=== PATIENT | female | born 2000 | race Hispanic/Latino ===

== ENCOUNTER 2019-05-05 02:28 | Emergency (ER) | payer OTHER ==
[~2019-05-05] VITALS: Ht 162.6 cm; Wt 72.6 kg
--- OUTSIDE RECORDS SUMMARY | 2019-05-05 02:31 | XMS REPORT ---
Author Author [facility] Address Unknown Phone Unavailable Care Team Providers Care Selector Packer Name Role Phone Unavailable Unavailable Payers Payer Name Policy Type Policy Number Effective Date Expiration Date Problems This patient has no known problems. Allergies, Adverse Reactions, Alerts Allergy Name Allergy Type Status Severity Reaction(s) Onset Date Inactive Date Treating Clinician Comments No Known Allergies DA Active U 2017-08-25 00:00:00 Medications This patient has no known medications.
[2019-05-05 03:20] LABS: BILIRUBIN,URINE NEGATIVE (NEGATIVE); CLARITY,URINE CLEAR (CLEAR); COLOR,URINE YELLOW (YELLOW); KETONES,URINE NEGATIVE (NEGATIVE); LEUKOCYTE ESTERASE ,URINE LARGE (NEGATIVE); NITRITE,URINE NEGATIVE (NEGATIVE); PROTEIN,URINE DIPSTICK NEGATIVE (NEGATIVE); URINE UROBILINOGEN 1 mg/dL (0.2 - 1)
[2019-05-05 03:46] LABS: WBC,URINE (MAN) 21-50 /HPF (0-5)
[2019-05-05 03:47] LABS: BACTERIA,URINE MANY /HPF; EPITHELIAL CELLS,URINE MANY /LPF
[2019-05-05 04:15] LABS: PREGNANCY TEST, URINE NEGATIVE (NEGATIVE)
[2019-05-05 04:26] VITALS: BP 127/74
[2019-05-05] MEDS ORDERED: METHYLPREDNISOLONE SOD SUCC 125 MG/2ML VIAL IM ONE (04:30)
== END 2019-05-05 04:00 | disposition home or self-care (01) ==
LOC: ER 02:28
DX: T63.424A Toxic effect of venom of ants, undetermined, initial encounter (principal); N30.91 Cystitis, unspecified with hematuria; R21 Rash and other nonspecific skin eruption
CPT/HCPCS: 81001; 81025; 99283; J2930